=== PATIENT | female | born 1970 | race African-American/Black ===

== ENCOUNTER 2019-03-05 19:33 | Emergency (ER) | payer SELFPAY ==
[~2019-03-05] VITALS: Ht 157.5 cm; Wt 68.0 kg
[2019-03-05 19:51] VITALS: BP 150/93
== END 2019-03-05 20:20 | disposition left against medical advice (07) ==
LOC: ER 19:33
DX: Z53.21 Procedure and treatment not carried out due to patient leaving prior to being seen by health care provider (principal)